=== PATIENT | male | born 1975 | race Asian ===

== ENCOUNTER 2022-10-28 22:35 | Emergency (ER) | payer MEDICAID ==
[~2022-10-28] VITALS: Ht 180.3 cm; Wt 83.9 kg
[2022-10-28 22:49] VITALS: BP_SYST 111
--- NOTE | 2022-10-28 22:55 | NUR ---
Patient triaged and placed in waiting room. VSS and patient appears in no acute distress at this time. Accompanied by , awaiting available bed, and MD notified of need for MSE.
--- NOTE | 2022-10-29 01:15 | NUR ---
Patient placed in ER bed 7 for evaluation. Bed in lowest position with side rails up. Instructed patient to notify ED staff for any changes in condition or worsening of symptoms. Patient verbalized understanding.
--- NOTE | 2022-10-29 01:17 | NUR ---
Dr. Mesa is at bedside examining the patient.
[2022-10-29] MEDS ORDERED: ONDANSETRON 4 MG ODT TAB PO ONE (01:30)
[2022-10-29] MEDS ORDERED: DICYCLOMINE HCL 20 MG/2 ML AMP IM ONE (01:30)
[2022-10-29] MEDS ORDERED: ACETAMINOPHEN 500 MG TABLET PO ONE (01:30)
--- NOTE | 2022-10-29 01:35 | NUR ---
Phlebotomist Supervisor/Instructor at bedside.
--- NOTE | 2022-10-29 01:42 | NUR ---
Patient taken to CT.
--- NOTE | 2022-10-29 01:45 | NUR ---
Patient is back from CT.
[2022-10-29 01:48] LABS: BASOPHILS % (AUTO) 0.3 % (0.0-2.0); HEMATOCRIT 45.6 % (36-54); HEMOGLOBIN 15.2 g/dL (14.0-18.0); LYMPHOCYTES # (AUTO) 0.2 K/uL (1.0-5.5); LYMPHOCYTES % (AUTO) 2.7 % (20.5-51.5); MEAN CORPUSCULAR HEMOGLOBIN 30 pg (27-31); MEAN CORPUSCULAR HGB CONC 33 % (32-36); MEAN CORPUSCULAR VOLUME 89 fL (79.0-98.0); MONOCYTES # (AUTO) 0.4 K/uL (0.0-1.0); MONOCYTES % (AUTO) 4.3 % (1.7-9.3); NEUTROPHILS # (AUTO) 8.1 K/uL (1.8-7.7); NEUTROPHILS % (AUTO) 92.7 % (40.0-70.0); PLATELET COUNT (AUTO) 250 K/uL (130-430); RED BLOOD CELL COUNT(AUTO) 5.12 MIL/uL (4.2-6.2); RED CELL DISTRIBUTION WIDTH 14.2 % (9.0-15.0); WHITE BLOOD COUNT (AUTO) 8.7 K/uL (4.8-10.8)
[2022-10-29 02:13] LABS: CALCIUM 9.4 mg/dL (8.4-11.0); CREATININE 1.39 mg/dL (0.55-1.30)
[2022-10-29 02:18] LABS: ALBUMIN 4.3 g/dL (3.4-4.8); TOTAL BILIRUBIN 1.5 mg/dL (0.0-1.0)
[2022-10-29] MEDS ORDERED: DICY10CA13 PO (03:01)
[2022-10-29] MEDS ORDERED: ACET-2634 PO (03:01)
[2022-10-29 03:06] VITALS: BP_SYST 132
--- NOTE | 2022-10-29 03:07 | NUR ---
Patient given written and verbal discharge instructions and verbalizes understanding. ER MD discussed with patient the results and treatment provided. Patient in stable condition. ID arm band removed. Rx of ACETAMINOPHEN AND DICYCLOMINE given. Patient educated on pain management and to follow up with PMD. Pain Scale 0/10. Opportunity for questions provided and answered. Medication side effect fact sheet provided.
== END 2022-10-29 03:06 | disposition home or self-care (01) ==
LOC: SED 22:35
DX: R06.02 Shortness of breath (principal); B34.9 Viral infection, unspecified; R10.32 Left lower quadrant pain; R50.9 Fever, unspecified; Z79.899 Other long term (current) drug therapy; Z20.822 Contact with and (suspected) exposure to COVID-19
CPT/HCPCS: 99285; 87426; 80053; 83690; 85025; 36415; 87804 ×2; 74176; 71045; 76376; 96372; Q0162; J0500